=== PATIENT | female | born 1950 | race Caucasian/White ===

== ENCOUNTER → 2017-11-26 08:51 | Outpatient (CLI) | payer MEDICARE, OTHER, SELFPAY ==
--- NOTE | 2017-11-26 | DI.MG.S_ITS ---
BILATERAL DIGITAL SCREENING MAMMOGRAM 3D/2D WITH CAD: 11/26/2017 CLINICAL: Routine screening. Comparison is made to exams dated: 11/10/2016 mammogram, 11/01/2015 mammogram, and 10/30/2014 mammogram - [facility]. There are scattered fibroglandular elements in both breasts. Current study was also evaluated with a Computer Aided Detection (CAD) system. There are benign masses in the right breast. No significant masses, calcifications, or other findings are seen in either breast. There has been no significant interval change. IMPRESSION: BENIGN There is no mammographic evidence of malignancy. A 1 year screening mammogram is recommended. This exam was interpreted at Station ID: [id number]. NOTE: For mammograms, a report in lay terms will be sent to the patient. Approximately 15% of breast malignancies will not be visualized mammographically. In the management of a palpable breast mass, a negative mammogram must not discourage biopsy of a clinically suspicious lesion. Electronically Signed By: Johnson farr/farnaz:11/27/2017 09:15:17 letter sent: Normal Exam ACR BI-RADS Category 2: Benign Finding(s) 3342F
== END ==
PROVIDERS: Family Provider Family Medicine; PCP Family Medicine; Visit Provider Family Medicine
DX: Z12.31 Encounter for screening mammogram for malignant neoplasm of breast (principal)
CPT/HCPCS: 77063; 77067

== ENCOUNTER → 2017-12-25 15:30 | Outpatient (CLI) | payer MEDICARE, OTHER, SELFPAY | PROVIDERS: Family Provider Family Medicine; PCP Family Medicine; Visit Provider Podiatrist | DX: Z01.818 Encounter for other preprocedural examination (principal) | CPT/HCPCS: 93005; 93010 ==

== ENCOUNTER 2018-07-12 10:02 | Emergency (ER) | payer MEDICARE, OTHER, SELFPAY ==
[2018-07-12 11:22] VITALS: BP 150/90; PULSE 73; RESP 13; TEMP 36.6; O2SAT 98
[2018-07-12 13:00] VITALS: BP 150/84; PULSE 70; RESP 17; O2SAT 100
[2018-07-12] MEDS: CYCLOBENZAPRINE 10 MG TABLET PO (13:08)
[2018-07-12] MEDS: HYDROCODONE/ACET 5/325 TABLET 1 TAB PO (13:11)
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
[2018-07-12 14:47] VITALS: BP 135/82; PULSE 65; RESP 14; O2SAT 96
== END 2018-07-12 14:47 | disposition home or self-care (01) ==
PROVIDERS: Emergency Provider Internal Medicine; Family Provider Family Medicine; PCP Family Medicine
DX: S39.012A Strain of muscle, fascia and tendon of lower back, initial encounter (principal)
CPT/HCPCS: 99282; 99283

== ENCOUNTER → 2018-09-18 07:38 | Outpatient (CLI) | payer MEDICARE, OTHER, SELFPAY ==
[2018-09-18 08:57] LABS: Add Manual Diff / Slide Review NO; Basophils Absolute Auto 0 /uL (0-100); Basophils Percent Auto 0.8 % (0-2); Eosinophils Absolute Auto 100 /uL (0-450); Eosinophils Percent Auto 2.1 % (2-4); Hematocrit 42.3 % (36-46); Lymphocytes Absolute Auto 1500 /uL (1100-4500); Lymphocytes Percent Auto 28.6 % (25-40); Mean Corpuscular HGB Conc 33.1 % (30-36); Mean Corpuscular Hemoglobin 29.3 PG (26-34); Mean Corpuscular Volume 88.5 fL (80-100); Monocytes Absolute Auto 500 /uL (0-900); Monocytes Percent Auto 9.1 % (3-14); Neutrophils Absolute Auto 3100 /uL (1500-7000); Neutrophils Percent Auto 59.4 % (50-75); Platelet Count 259 X10^3/uL (150-400); Red Blood Cell Count 4.78 X10^6/uL (4.0-5.2); Red Cell Distribution Width 13.3 % (11.6-14.8); White Blood Cell Count 5.1 X10^3/uL (4.5-11.0)
[2018-09-18 10:00] LABS: Alanine Aminotransferase 27 IU/L (9-52); Albumin 4.6 g/dL (3.5-5.0); Albumin Globulin Ratio 1.6 (1.0-2.8); Alkaline Phosphatase 54 U/L (38-126); Aspartate Aminotransferase 24 IU/L (14-36); Bilirubin Total 0.4 mg/dL (0.2-1.3); Blood Urea Nitrogen 14 mg/dL (7-17); Calcium 9.7 mg/dL (8.4-10.2); Carbon Dioxide 27 mmol/L (22-32); Chloride 97 mmol/L (98-107); Cholesterol 192 mg/dL (140-199); Estimated Glomerular Filt Rate > 60.0 mL/min (>60); Globulin 2.8 g/dL (1.7-4.1); Glucose 85 mg/dL (80-110); HDL Cholesterol 66 mg/dL (40-60); HEMOLYSIS < 15 (0-50); LDL Cholesterol Calculated 111 mg/dL (<100); Potassium 4.9 mmol/L (3.4-5.1); Sodium 137 mmol/L (137-145); Total Protein 7.4 g/dL (6.3-8.2); Triglycerides 73 mg/dL (35-150)
[2018-09-18 10:06] LABS: Microalbumi Creatinin Ratio Ur 17.6 ug/mg CR (<30); Microalbumin Urine Random < 0.6 mg/dL (0-1.6)
[2018-09-18 10:30] LABS: Thyroid Stimulating Hormone 1.85 uIU/mL (0.47-4.68)
== END ==
PROVIDERS: Family Provider Family Medicine; PCP Family Medicine; Visit Provider Family Medicine
DX: I10 Essential (primary) hypertension (principal); E78.2 Mixed hyperlipidemia; Z13.1 Encounter for screening for diabetes mellitus; R89.9 Unspecified abnormal finding in specimens from other organs, systems and tissues; Z13.0 Encounter for screening for diseases of the blood and blood-forming organs and certain disorders involving the immune mechanism
CPT/HCPCS: 36415; 80053; 80061; 82043; 82570; 84443; 85025

== ENCOUNTER → 2018-09-29 14:28 | Outpatient (CLI) | payer MEDICARE, OTHER, SELFPAY ==
--- NOTE | 2018-09-29 14:30 | DI.MG.S_ITS ---
BILATERAL DIGITAL DIAGNOSTIC MAMMOGRAM 3D/2D: 09/29/2018 CLINICAL: Fibrocystic changes of the right breast. Comparison is made to exams dated: 11/26/2017 mammogram, 11/10/2016 mammogram, and 11/01/2015 mammogram - [facility]. There are scattered fibroglandular elements in both breasts. There is a triangular marker overlying the skin of the upper outer right breast at middle depth at the site of the patient's reported palpable abnormality. There is an oval circumscribed mass measuring at least 2.0 cm in greatest diameter, which appears stable on multiple prior mammograms dating back to at least 2012. There is a triangular marker overlying the skin of the upper inner right breast at middle depth at the site of the patient's reported palpable abnormality. There is an oval circumscribed mass measuring at least 2.0 cm in greatest diameter, which appears stable on multiple prior mammograms dating back to at least 2012. There is a linear scar marker overlying the right breast. There is a circular mole marker overlying the left breast. No other significant masses, calcifications, or other findings are seen in either breast. IMPRESSION: INCOMPLETE: NEEDS ADDITIONAL IMAGING EVALUATION 1) Stable at least 2.0 cm oval circumscribed mass identified in the upper outer right breast at middle depth, underlying the site of patient's reported palpable concern. Targeted diagnostic ultrasound recommended for further evaluation, which will be performed immediately following this exam. 2) Stable at least 2.0 cm oval circumscribed mass identified in the upper inner right breast at middle depth, underlying the site of patient's reported palpable concern. Targeted diagnostic ultrasound recommended for further evaluation, which will be performed immediately following this exam. This exam was interpreted at Station ID: [id number]. NOTE: For mammograms, a report in lay terms will be sent to the patient. Approximately 15% of breast malignancies will not be visualized mammographically. In the management of a palpable breast mass, a negative mammogram must not discourage biopsy of a clinically suspicious lesion. Electronically Signed By: Regino Melendez M.D. ecl/:09/29/2018 15:10:34 letter sent: Additional Imaging Needed ACR BI-RADS Category 0: Incomplete 3340F
--- NOTE | 2018-09-29 14:30 | DI.US.S_ITS ---
LIMITED ULTRASOUND OF RIGHT BREAST: 09/29/2018 CLINICAL: Patient returns today to evaluate a density in the right breast. Comparison is made to exams dated: 09/29/2018 mammogram, 11/26/2017 mammogram, 11/10/2016 mammogram, 10/28/2013 mammogram, 08/03/2012, and 08/03/2012 mammogram - [facility]. Color flow and real-time ultrasound of the right breast upper aspect were performed. Mahoney scale images of the real-time examination were reviewed. There is a 2.0 x 1.1 x 2.1 cm oval circumscribed hypoechoic mass in the right breast at 10:00 position 7 cm from the nipple at the site of patient's reported focal palpable painful abnormality. There is peripheral vascularity adjacent to the mass but no internal vascularity on Doppler ultrasound. This mass previously measured 2.2 x 1.0 x 1.8 cm on comparison ultrasound of 08/03/2012. This correlates with the findings seen on comparison diagnostic mammography performed earlier today. No other masses or abnormalities are identified in the area of patient's indicated concern. There is a 2.3 x 1.1 x 1.7 cm oval circumscribed hypoechoic mass in the right breast at 2:00 position 7 cm from the nipple at the site of patient's reported focal palpable painful abnormality. There is trace internal vascularity on Doppler ultrasound. This mass previously measured 2.4 x 0.8 x 1.6 cm on comparison ultrasound of 08/03/2012. This correlates with the findings seen on comparison diagnostic mammography performed earlier today. No other masses or abnormalities are identified in the area of patient's indicated concern. IMPRESSION: BENIGN 1) Patient's focal painful palpable abnormality of the upper outer right breast at 10:00 position 7 cm from the nipple correlates with a 2.2 cm oval circumscribed mass that is stable in appearance on exams dating back to 08/03/2012, consistent with a fibroadenoma. Recommend clinical followup for further evaluation and management of the patient's symptoms. 2) Patient's focal painful palpable abnormality of the upper inner right breast at 2:00 position 7 cm from the nipple correlates with a 2.3 cm oval circumscribed mass that is stable in appearance on exams dating back to 08/03/2012, consistent with a fibroadenoma. Recommend clinical followup for further evaluation and management of the patient's symptoms. 3) There is no sonographic evidence of malignancy in the imaged areas of the right breast. Return to annual mammogram screening schedule is recommended. The patient is advised to monitor her breasts and to return sooner for re-evaluation should she feel anything grow or change. This exam was interpreted at Station ID: [id number]. Electronically Signed By: Regino Melendez M.D. ecl/:09/30/2018 10:48:04 letter sent: Clinical Evaluation Ultrasound BI-RADS: 2 Benign
== END ==
PROVIDERS: PCP Family Medicine; Visit Provider Family Medicine
DX: R92.8 Other abnormal and inconclusive findings on diagnostic imaging of breast (principal); N60.11 Diffuse cystic mastopathy of right breast; N63.11 Unspecified lump in the right breast, upper outer quadrant; N63.12 Unspecified lump in the right breast, upper inner quadrant; N64.4 Mastodynia
CPT/HCPCS: 76642; 77066; G0279

== ENCOUNTER 2018-11-18 07:23 | Day surgery (SDC) | payer MEDICARE, OTHER, SELFPAY ==
[2018-11-02 10:43] VITALS: BMI 28.2
[2018-11-18] VITALS (10 sets, daily range): BP systolic 74–151; BP diastolic 45–92; PULSE 56–81; RESP 8–16; TEMP 36.3–37.1; O2SAT 95–100; BMI 27.8
--- NOTE | 2018-11-18 | PATH_ITS ---
[facility] Accession Number: [id number] . 01 Material submitted: . PART A: breast - MEDIAL LESION RIGHT BREAST PART B: breast - LATERAL MASS RIGHT BREAST . 01 Clinical history: . A. SHORT STITCH MEDIAL, LONG STITCH ANTERIOR B. SHORT STITCH MEDIAL, LONG STITCH ANTERIOR . 01 Diagnosis: A. 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 - Nuclear grade: Intermediate. - Necrosis: Not identified. - Extent of DCIS: Present on more than one slide (10 slides with DCIS) corresponding to tissue slices #6-10, spanning approximately 2.3 cm. - Calcifications: Absent. - Resection margins: Negative, but close (see comment for details). - Estrogen receptor status: Positive (more than 95% of tumor cells staining; staining intensity: Strong). - Nipple, skin, skeletal muscle, and regional lymph nodes are not present for evaluation. - Negative for invasive malignancy. - Pathologic stage: pTis. . B. 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 - Nuclear grade: Intermediate. - Necrosis: Not identified. - Extent of DCIS: Present on more than one slide (10 slides with DCIS) corresponding to tissue slices #5-8, spanning approximately 2.0 cm. - Calcifications: Focally present, in association with DCIS. - Resection margins: Negative, but close (see comment for details). - Estrogen receptor status: Positive (more than 95% of tumor cells staining; staining intensity: Strong). - Nipple, skin, skeletal muscle, and regional lymph nodes are not present for evaluation. - Negative for invasive malignancy. - Pathologic stage: pTis. [facility] . 01 Comment: Details of DCIS proximity to margins: A- Medial lesion of right breast: DCIS is less than 0.1 cm from the posterior margin (linear span of 0.1 cm), 0.1 cm from the inferior margin (multifocally, linear span of 1.0 cm), 0.1 cm from the superior margin (linear span of 0.2 cm), 0.2 cm from the medial margin, 0.8 cm from the lateral margin, and more than 1 cm from the anterior margin. B- Lateral mass of right breast: DCIS is less than 0.1 cm from the inferior margin (linear span of 1.0 cm), 0.15 cm from the medial margin, 0.3 cm from the lateral and superior margins, 0.5 cm from the posterior margin, and more than 1 cm from the anterior margin. . 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 A spectrum of morphologic variation exists, and range from flat epithelial, to atypical ductal hyperplasia, to DCIS. . 01 Electronically signed: . Nichole Jeffery MD, Pathologist NPI- [id number] . 01 Gross description: . (A) Received: In formalin, labeled medial lesion right breast, short stitch medial, long stitch anterior. Specimen: Right partial mastectomy. Weight: 13 grams. Measurement: 3.5 cm anterior to posterior, 3.5 cm medial to lateral, and 1.3 cm superior to inferior. Skin ellipse: Absent. Wire: One localization wire enters the superior anteromedial aspect and ends just below the surface of the inferior central lateral aspect. Margins: Oriented by surgeon with short medial suture, long anterior suture, and inked as follows: posterior=black; anterior=purple; superior= blue; inferior=green; medial=yellow; lateral=orange. Sliced: Anterior to posterior into 10 slices. Lesions: One. Description: Firm, white, lobulated, well-circumscribed mass. Size: 2.3 x 1.6 x 1.2 cm. Slices involved: #6-#10. Biopsy site: No biopsy site grossly identified. Distance to margins: 2.2 cm from the anterior margin, 0.1 cm from the posterior margin, 0.1 cm from the superior margin, 0.1 cm from the inferior margin, 0.3 cm from the medical margin, and 0.9 cm from the lateral margin. Other: The remaining cut surfaces consist of yellow lobulated adipose tissue. No additional discrete masses or lesions are grossly identified. Fixation time: The specimen was placed in formalin on 11/18/2018 with no time given. The approximate total fixation time is calculated to be 69 hours 30 minutes. Sections: A1-A2: Slice 1, anterior end of specimen, perpendicular. A3-A4: Slice 2, bisected and submitted medial to lateral. A5-A6: Slice 3, bisected and submitted medial to lateral. A7-A8: Slice 4, bisected and submitted medial to lateral. A9-A10: Slice 5, tissue anterior to mass, location of terminal end of localization wire, bisected and submitted medial to lateral. A11-A12: Slice 6 with mass, bisected and submitted medial to lateral. A13-A14: Slice 7 with mass, bisected and submitted medial to lateral. A15-A16: Slice 8 with mass, bisected and submitted medial to lateral. A17-A18: Slice 9 with mass, bisected and submitted medial to lateral. A19-A20: Slice 10 with mass, posterior end of specimen, perpendicular. Specimen is entirely submitted. (B) Received: In formalin, labeled lateral mass right breast, short stitch medial, long stitch anterior. Specimen: Right partial mastectomy. Weight: 18 grams. Measurement: 5.5 cm anterior to posterior, 3.3 cm medial to lateral, and up to 2.2 cm superior to inferior. Skin ellipse: Absent. Wire: One localization wire enters the central inferoanterior aspect and exits the anterolateral inferior aspect. Margins: Oriented by surgeon with short medial suture, long anterior suture, and inked as follows: posterior=black; anterior=purple; superior=blue; inferior=green; medial=yellow; lateral=orange. Sliced: Anterior to posterior into 12 slices. Lesions: One. Description: Firm, white, lobulated, well-circumscribed mass. Size: 2.0 x 1.9 x 1.6 cm. Slices involved: #5-#8. Biopsy site: No biopsy site is grossly identified. Distance to margins: 2.2 cm from the anterior margin, 1.7 cm from the posterior margin, 1.8 cm from the superior margin, less than 0.1 cm from the inferior margin, 0.6 cm from the medial margin, and 0.7 cm from the lateral margin. Other: The remaining cut surfaces consist of yellow and perrin-white fibrofatty tissue. No other nodules, masses or lesions are grossly identified. Fixation time: The specimen was placed in formalin on 11/18/2018 with no time given. The approximate total fixation time is calculated to be 69 hours 30 minutes. Sections: B1: Anterior end of specimen, perpendicular. B2: Slice 2. B3: Slice 3. B4: Slice 4, tissue anterior to mass. B5-B6: Slice 5 with mass, bisected and submitted medial to lateral. B7-B8: Slice 6 with mass, bisected and submitted medial to lateral. B9-B12: Slice 7 with mass. B13-B14: Slice 8 with mass, bisected and submitted superior to inferior. B15: Slice 9, tissue posterior to mass. B16: Slice 10. B17: Slice 11. B18: Slice 12, posterior aspect of specimen, perpendicular. Specimen entirely submitted. ([id number]) /MRV . 01 Microscopic: . A panel of immunostains is performed on blocks A14 and B7 in order to evaluate the intraductal epithelial proliferation within the fibroadenomas. The intraductal epithelial proliferation demonstrates loss of CK5/6 (with appropriately staining external controls) and overexpression of ER, in support of the diagnosis of an atypical intraductal proliferation. There is no evidence of invasive malignancy. . DCIS has the following immunoreactivity in both blocks A14 and B7: - Estrogen receptor status: Positive (99% tumor cells staining; staining intensity: strong; Internal controls: positive) . Internal controls for ER are positive. Cold ischemic time is <5 minutes. The scoring criteria for breast biomarkers by immunohistochemstry is based on the current ASCO/CAP guidelines (Randy AC et al J Clin Oncol 2018: 2018 Nov 10;36(20):5428-3086). Deparaffinized sections of formalin fixed tissue (along with appropriate positive controls) are incubated with the above antibody(s). Using the automated Arden stainer, tissue is incubated with the designated antibody which is then localized by a non-biotin, dual polymer detection system. The external controls are reviewed for appropriate reactivity and found to be adequate. Results on the target call population are indicated above. These tests have not been validated on decalcified tissue. * This test was developed and its performance characteristics determined by [employer]. It has not been cleared or approved by the U.S. Food and Drug Administration. The FDA has determined that such clearance or approval is not necessary. This test is used for clinical purposes. It should not be regarded as investigational or for research. . 01 Pathologist provided ICD-10: D05.11 . 01 CPT . 665899, 040643, O21236, V92480 Performed at: 01 [facility] [address] [place] [address], [place], [place] [id number] MD Philip Currie MD Phone: [phone]
--- NOTE | 2018-11-18 | DI.MG.S_ITS ---
MULTIPLE SPECIMENS RIGHT BREAST: 11/18/2018 CLINICAL: Right breast cancer. Correlation is made to exams dated: 11/18/2018 mammogram, 11/18/2018 localization, and 09/29/2018 mammogram - [facility]. A surgical specimen was imaged for the mass located in the right breast at 10 o'clock posterior depth. A surgical specimen was imaged for the mass located in the right breast at 2 o'clock posterior depth. IMPRESSION: SPECIMEN The imaged specimen includes the lesion and the distal portion of the localization wire. Waiting for pathology results. A final report will be issued when these become available. The imaged specimen includes the distal portion of the localization wire. Waiting for pathology results. A final report will be issued when these become available. This exam was interpreted at [facility]: [id number]. Jimmy alegria/:11/18/2018 17:05:05
--- NOTE | 2018-11-18 | DI.MG.S_ITS ---
UNILATERAL RIGHT DIGITAL DIAGNOSTIC MAMMOGRAM POST-NEEDLE BIOPSY: 11/18/2018 CLINICAL: Right breast cancer. Comparison is made to exams dated: 11/18/2018 localization, 09/29/2018 mammogram, and 11/26/2017 mammogram - [facility]. There are scattered fibroglandular elements in right breast. There is a wire in the appropriate position in the right breast at 10 o'clock middle depth. There also is a wire in the appropriate position in the right breast at 2 o'clock middle depth. IMPRESSION: POST PROCEDURE MAMMOGRAM FOR MARKER PLACEMENT Successful wire localization of masses at the 10 o'clock and 2 o'clock position in the right breast This exam was interpreted at [facility]: [id number]. NOTE: For mammograms, a report in lay terms will be sent to the patient. Approximately 15% of breast malignancies will not be visualized mammographically. In the management of a palpable breast mass, a negative mammogram must not discourage biopsy of a clinically suspicious lesion. Electronically Signed By: Jimmy alegria/:11/18/2018 17:03:34 ACR BI-RADS Category Post-procedure mammogram for marker placement
--- NOTE | 2018-11-18 07:27 | DI.US.S_ITS ---
MULTIPLE ULTRASOUND GUIDED WIRE LOCALIZATION RIGHT BREAST: 11/18/2018 CLINICAL: Pre-op wire localization x 2 with ultrasound guidance. Correlation is made to exams dated: 09/29/2018 mammogram, 09/29/2018 ultrasound, 11/26/2017 mammogram, 11/10/2016 mammogram, and 11/01/2015 mammogram - [facility]. A wire localization using ultrasound guidance was performed for the mass located in the right breast at 10 o'clock posterior depth. The skin was prepped in the usual manner. Local anesthetic was administered to the access site. A wire was inserted into the targeted area under ultrasound guidance. A wire localization using ultrasound guidance was performed for the mass located in the right breast at 2 o'clock posterior depth. The skin was prepped in the usual manner. Local anesthetic was administered to the access site. A wire was inserted into the targeted area under ultrasound guidance. IMPRESSION: WIRE LOCALIZATION Wire localization for the mass in the right breast at 10 o'clock posterior depth was successful. Waiting for pathology results. A final report will be issued when these become available. Wire localization for the mass in the right breast at 2 o'clock posterior depth was successful. Waiting for pathology results. A final report will be issued when these become available. This exam was interpreted at [facility]: [id number]. Jimmy alegria/:11/18/2018 16:59:42
[2018-11-18] MEDS: LACTATED RINGERS 1,000 ML 100 ML IV (09:18)
--- NOTE | 2018-11-18 11:06 | PM.PREOP ---
Pre-operative Note Interval Note History & Physical reviewed/Exam performed by Physician: Yes Changes to H&P: Yes H&P completed within 30 days and has changed as indicated here:: Patient had 2 needles placed. Because of the hardness of the tissue as per the radiologist the needles are not through the lesion but up to it
[2018-11-18] MEDS: CEFAZOLIN 2 GM/100 ML FROZ.PIGGY IV (11:20)
--- NOTE | 2018-11-18 11:42 | SUR.OPER ---
Supine on padded OR bed, head on pillow, arms secured on padded arm boards at <90 degrees abduction, legs uncrossed, safety belt at thigh, tape over blanket over lower legs.
[2018-11-18] MEDS: BUPIVACAINE 0.5% (PF) VIAL 30 ML INJ (11:59)
--- NOTE | 2018-11-18 13:12 | PM.OP.1 ---
Operative Date/Time/Diagnoses Date of procedure: 11/18/18 Time of procedure: 12:37 Pre-op diagnosis: Two masses right breast Post-op diagnosis: same Procedure & Clinicians Procedure: Localization and lumpectomy of 2 masses in the right breast Same procedure as scheduled: Yes Indications: Patient with 2 masses known to be present for years who is developed pain in the area. She would like to have them removed. They are not palpable. Patient was brought in for needle localization lumpectomy. Surgeon: Manas Lopez Click Yes if Unassisted: Yes Anesthesia Type: General Operative Notes Findings: Both lesions were in the specimen Closure Type: primary Specimen(s): other (Breast masses) Prosthetic devices, grafts, tissues, transplants, or devices: None Estimated Blood Loss (mL): 50 Blood products transfused: none Procedure in detail: Patient is placed supine on the operating room table underwent general LMA anesthesia. She had had wire localization performed prior to coming to the operating room. Her breast(right) was prepped and draped in the usual fashion. Using different instruments for each lesion a curvilinear incision was made in Melissa's lines overlying each mass. The incision Was carried into the deep subcu. Using the needle as a guide and then palpation lesions were excised. Closure was with 3 0 Vicryl to reapproximate the deep tissues and the subcu and 4 0 Vicryl subcuticular stitch and Steri-Strips to close the skin. Dressings were applied. Patient tolerated the procedure well. Specimen mammography revealed both lesions were removed. Complications: none Condition: stable Disposition: PACU Plan for aftercare: Follow-up in the office
[2018-11-18] MEDS: fentaNYL 100 MCG/2 ML INJ 50 MCG IV (13:20)
[2018-11-18] MEDS: OXYCODONE/ACETAMINOPHEN 5/325 TABLET 1 TAB PO (13:30)
--- NOTE | 2018-11-18 15:10 | SUR.PHASEII ---
Late entry: 1400 pt voiced she would like to go home, dressing to r breast x 2 remained c/d/i. Assisted pt to dress and pt left unit in stable condition.
== END 2018-11-18 14:00 | disposition home or self-care (01) ==
PROVIDERS: PCP Family Medicine; Visit Provider Specialist
PROC: (CPT 19125; principal; 2018-11-18 10:45)
DX: D05.11 Intraductal carcinoma in situ of right breast (principal); Z17.0 Estrogen receptor positive status [ER+]; I10 Essential (primary) hypertension; E78.5 Hyperlipidemia, unspecified
CPT/HCPCS: 19125; 19126; 19285; 76098; 77065; 88307; 88341; 88342; J0690; J1100; J2405; J2704; J3010

== ENCOUNTER 2018-12-13 09:35 | Day surgery (SDC) | payer MEDICARE, OTHER, SELFPAY ==
[2018-11-30 12:12] VITALS: BMI 25.8
[2018-12-13] VITALS (14 sets, daily range): BP systolic 112–136; BP diastolic 70–87; PULSE 61–77; RESP 8–16; TEMP 36.5–36.8; O2SAT 94–100; BMI 27.8
--- NOTE | 2018-12-13 | PATH_ITS ---
[facility] Accession Number: [id number] . 01 Material submitted: . PART A: breast - RIGHT BREAST MASS PART B: breast - LATERAL RIGHT BREAST MASS . 01 Diagnosis: A. 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 - Nuclear grade: Intermediate. - Necrosis: Not identified. - Extent of DCIS: Present on one slide (less than 0.1 cm). - Calcifications: Absent. - Resection margins: Negative; DCIS is more than 0.9 cm from all the margins. - Nipple, skeletal muscle, and regional lymph nodes are not present for evaluation. - Negative for invasive malignancy. - Additional findings: - Focal flat epithelial atypia, focal atypical ductal hyperplasia. - Skin with dermal scar, associated suture granuloma, and changes consistent with prior excision site. - Background breast with changes consistent with prior excision site, associated fat necrosis with coarse calcifications, suture granuloma/foreign body giant cell reaction, focal usual ductal hyperplasia, fibroadenomatoid change, and columnar cell change/ columnar cell hyperplasia. - Negative for invasive malignancy. . B. Lateral Right Breast Mass, Excision: Residual small focus of ductal carcinoma in situ (DCIS), with the following features: - Architectural pattern: Solid and cribriform. - Nuclear grade: Intermediate. - Necrosis: Not identified. - Extent of DCIS: Present on one slide (less than 0.2 cm), in association with residual fibroadenoma. - Calcifications: Absent. - Resection margins: Negative; DCIS is more than 0.8 cm from the all the margins. - Nipple, skeletal muscle, and regional lymph nodes are not present for evaluation. - Negative for invasive malignancy. - Additional findings: - Skin with dermal scar, associated suture granuloma, and changes consistent with prior excision site. - Background breast with changes consistent with prior excision site, suture granuloma/foreign body giant cell reaction, focal columnar cell change/columnar cell hyperplasia, sclerosed papilloma with usual ductal hyperplasia, and microcalcifications associated with fibrosis/scar/benign breast parenchyma. - Negative for invasive malignancy. 12/17/2018 . 01 Electronically signed: . Nichole Jeffery MD, Pathologist NPI- [id number] . 01 Gross description: . (A) Received: In formalin, labeled right breast mass; long stitch medial, short stitch inferior. Weight: 63 grams. Measurement: 3.3 cm anterior to posterior, 9.1 cm medial to lateral and 5.3 cm superior to inferior. Skin ellipse: Present, measuring 4.0 x 1.0 cm. Wire: Absent. Oriented by surgeon with long medial suture, short inferior suture, and inked as follows: posterior=black; anterior-purple; superior=blue; inferior=green; medial=yellow; lateral=orange. Sliced: Lateral to medial into 16 slices. Lesions: One. Description: Mahoney-white ill-defined mass with a string marker within slice 7. Size: 3.8 x 3.7 x 2.0 cm. Slices involved: Slices 4-15. Biopsy site: Present. Distance to margins: 0.3 cm from skin surface, 0.3 cm from anterior margin, less than 0.1 cm from posterior margin, 1.3 cm from superior margin, 0.2 cm from the inferior margin, 1.4 cm from the lateral margin, and 0.4 cm from the medial margin. The remaining cut surfaces consist of yellow lobulated adipose tissue. Fixation time: The specimen was placed in formalin on 12/13/2018 with no time given. The approximate total fixation time in formalin is calculated to be 54 hours 30 minutes. Sections: A1: Slice 1, dental sales representative lateral end of specimen, perpendicular. A2-A3: Slice 3, slice lateral to mass, dental sales representative, no mass present. A4: Slice 4, mass with margin, dental sales representative. A5: Slice 5, mass with margin, dental sales representative. A6-A7: Slice 6, trisected, dental sales representative middle third with mass, submitted anterior to posterior. A8: Slice 7, dental sales representative with mass and margin. A9-A11: Slice 8, trisected, entirely submitted. A12-A13: Slice 9, bisected and entirely submitted. A14-A15: Slice 10, bisected and entirely submitted. A16-A17: Slice 11, bisected and entirely submitted. A18-A19: Slice 12, bisected and entirely submitted. A20-A21: Slice 13, bisected and entirely submitted. A22: Slice 14, entirely submitted. A23: Slice 15, bisected superior to inferior, superior half with mass submitted. A24-A25: Medial end of specimen, perpendicular, entirely submitted. Note: After slicing, this specimen was reviewed by Dr. Cristiano Quach. (B) Received: In formalin, labeled right lateral breast mass, long stitch medial, long stitch superior. Per the requisition, long stitch is medial and short stitch is superior, which correlates exactly with how the specimen is oriented. Specimen: Right partial mastectomy. Weight: 53 grams. Measurement: 5.1 cm anterior to posterior, 4.7 cm medial to lateral, 5.8 cm superior to inferior. Skin ellipse: Present, measuring 2.2 x 0.5 cm. Wire: Absent. Margins: Oriented by surgeon with long medial suture, short superior suture, and inked as follows: posterior=black; anterior=purple; superior=blue; inferior=green; medial=yellow; lateral=orange. Sliced: Superior to inferior into 14 slices. Lesions: One. Description: Mahoney-white firm ill-defined mass. Size: 4.5 x 4.1 x 3.2 cm. Slices involved: Slices 1-11. Biopsy site: Present. Distance to margins: 0.5 cm from the skin surface, 0.4 cm from the anterior margin, 0.1 cm from the posterior margin, 0.1 cm from the superior margin, 1.3 cm from the inferior margin, 0.2 cm from the medial margin, and 0.1 cm from the lateral margin. The remaining cut surface consists of yellow lobulated and focally fibrous adipose tissue. No other masses or lesions are grossly identified. Fixation time: The specimen was placed in formalin on 12/13/2018 with no time given. The approximate total fixation time in formalin is calculated to be 54 hours 30 minutes. Sections: B1-B2: Superior end of specimen, slice 1, perpendicular, mass is present, entirely submitted. B3-B4: Slice 2, mass, bisected and entirely submitted. B5-B6: Slice 3, dental sales representative with mass, dental sales representative. B7: Slice 4, dental sales representative with mass. B8-B11: Slice 5, entirely submitted. B12: Slice 6, dental sales representative with mass. B13-B14: Slice 7, dental sales representative with mass. B15: Slice 8, mass with margins, dental sales representative. B16: Slice 9, mass with margins, dental sales representative. B17: Slice 10, mass with margins, dental sales representative. B18: Slice 11, mass with margins. B19-B20: Slice 12, slice inferior to mass, no mass present, bisected and entirely submitted. B21: Slice 14, dental sales representative inferior end of specimen, perpendicular. Note: After slicing, the specimen was reviewed by Dr. Cristiano Quach. ([id number]) /MRV . 01 Microscopic: . The lesions identified in the re-excision specimens (parts A and B) are interpreted in conjunction with the prior excision specimens (case# [id number]). . Part A. In block A14, a minute focus of atypical intraductal proliferation (< 0.1 cm) consists of cells that are not equidistant from each other and overlap, are not round but rather enlarged/elongate with variable nuclear size and increase in nuclear-cytoplasmic ratio, and form bridges and arcades of variable thickness. Given the differential diagnosis that includes usual ductal hypeprlasia, this focus is evaluated with CK 5/6 and ER; it has overexpression of ER and loss of CK5/6, which along with the morphology, is best interpreted as a minute focus of residual DCIS of intermediate grade morphology. In Block A19, 3 small ducts have a slightly atypical intraductal proliferation, with a differential diagnosis that includes DCIS versus flat epithelial atypia and atypical ductal hyperplasia. One duct with flat epithelial changes has overexpression of ER and loss of CK5/6 and is best interpreted as flat epithelial atypia; the rest of the ducts do not demonstrate a definite neoplastic immunoprofile, and are best interpreted as minute foci of atypical ductal hyperplasia and columnar cell change/hyperplasia. . Part B. In block B18, an atypical intraductal proliferation within a residual focus of fibroadenoma demonstrates loss of CK 5/6 and overexpression of ER; given the nuclear size variability and overlap, and the morphologic similarity to the intermediate grade DCIS on the prior excisions, these changes are best interpreted as a small residucal focus of intermediate grade DCIS. . Deeper levels are examined on A12, A14, A19, B12, B15, and B18. All immunostains have appropriately staining external controls. . * This test was developed and its performance characteristics determined by [facility]. It has not been cleared or approved by the U.S. Food and Drug Administration. The FDA has determined that such clearance or approval is not necessary. This test is used for clinical purposes. It should not be regarded as investigational or for research. . 01 Pathologist provided ICD-10: D05.11 . 01 CPT . 827158, 624423, L75462, [id number] Performed at: 01 [facility] [address] [place] [address] [address], [place], [place] [id number] MD Philip Currie MD Phone: [phone]
[2018-12-13] MEDS: LACTATED RINGERS 1,000 ML 42 ML IV ×2 (10:24→13:08)
--- NOTE | 2018-12-13 11:50 | PM.PREOP ---
Pre-operative Note Interval Note History & Physical reviewed/Exam performed by Physician: Yes Changes to H&P: No H&P completed within 30 days and has changed as indicated here:: See H and P as an outpatient visit 12/01
[2018-12-13] MEDS: CLINDAMYCIN 900 MG/50 ML PIGGYBACK 50 MG IV (12:06)
--- NOTE | 2018-12-13 12:46 | SUR.OPER ---
Supine on padded OR bed, head on pillow, arms secured on padded arm boards at <90 degrees abduction, legs uncrossed, safety belt at thigh, tape over blanket over lower legs.
[2018-12-13] MEDS: BUPIVACAINE 0.5% (PF) VIAL 30 ML INJ (12:51)
[2018-12-13] MEDS: fentaNYL 100 MCG/2 ML INJ 50 MCG IV ×2 (14:37→15:03)
--- NOTE | 2018-12-13 14:44 | PM.OP.1 ---
Operative Date/Time/Diagnoses Date of procedure: 12/13/18 Time of procedure: 14:44 Pre-op diagnosis: DCIS 2 areas of the right breast. Patient interested in breast conservation and not mastectomy. Post-op diagnosis: same Procedure & Clinicians Procedure: Re-excision of biopsy sites.(lumpectomy 2 separate areas.) Same procedure as scheduled: Yes Indications: Unexpected DCIS in 2 known, longstanding fibroadenomas of the right breast. Surgeon: Manas Lopez Click Yes if Unassisted: Yes Anesthesia Type: General Operative Notes Findings: Re-excise to both areas of her prior biopsy sites. I entered the cavity of the lateral biopsy site and then excise the entire wall and sutured the cavity closed so that ink marking would reflect the actual exterior wall of my biopsy specimen. Closure Type: primary Specimen(s): other (To masses) Prosthetic devices, grafts, tissues, transplants, or devices: None Estimated Blood Loss (mL): 30 Blood products transfused: none Complications: none Condition: stable Disposition: PACU
[2018-12-13] MEDS: OXYCODONE/ACETAMINOPHEN 5/325 TABLET 1 TAB PO (15:02)
[2018-12-13] MEDS: HYDROMORPHONE 2 MG INJ 0.5 MG IV ×2 (15:33→15:45)
== END 2018-12-13 17:05 | disposition home or self-care (01) ==
PROVIDERS: PCP Family Medicine; Visit Provider Specialist
PROC: (CPT 19301; principal; 2018-12-13 11:30)
DX: D05.11 Intraductal carcinoma in situ of right breast (principal); I10 Essential (primary) hypertension; E78.2 Mixed hyperlipidemia
CPT/HCPCS: 19301; 88307; 88341; 88342; J1100; J1170; J2405; J2704; J3010

== ENCOUNTER → 2019-06-16 08:57 | Outpatient (CLI) | payer MEDICARE, OTHER, SELFPAY ==
--- NOTE | 2019-06-16 09:02 | DI.MG.S_ITS ---
BILATERAL DIGITAL SCREENING MAMMOGRAM 3D/2D WITH CAD POST LUMPECTOMY: 06/16/2019 CLINICAL: Routine screening. Personal history of right breast cancer. Family history of breast cancer. Comparison is made to exams dated: 11/18/2018 mammogram, 09/29/2018 mammogram, 11/26/2017 mammogram, 11/10/2016 mammogram, 11/01/2015 mammogram, and 09/15/2011 mammogram - [facility]. There are scattered fibroglandular elements in both breasts. Current study was also evaluated with a Computer Aided Detection (CAD) system. There are benign post operative findings in the right breast. No significant masses, calcifications, or other findings are seen in either breast. There has been no significant interval change. IMPRESSION: There is no mammographic evidence of malignancy. A 1 year screening mammogram is recommended. This exam was interpreted at Station ID: [id number]. NOTE: For mammograms, a report in lay terms will be sent to the patient. Approximately 15% of breast malignancies will not be visualized mammographically. In the management of a palpable breast mass, a negative mammogram must not discourage biopsy of a clinically suspicious lesion. Electronically Signed By: James kuo/farnaz:06/16/2019 10:01:35 copy to: ALANNA MACIAS copy to: KENYA LOVE letter sent: Normal Exam ACR BI-RADS Category 2: Benign Finding(s) 3342F
== END ==
PROVIDERS: PCP Family Medicine
DX: Z12.31 Encounter for screening mammogram for malignant neoplasm of breast (principal); D05.10 Intraductal carcinoma in situ of unspecified breast; Z80.3 Family history of malignant neoplasm of breast; M85.88 Other specified disorders of bone density and structure, other site; Z78.0 Asymptomatic menopausal state
CPT/HCPCS: 77063; 77067; 77080

== ENCOUNTER → 2019-11-25 07:24 | Outpatient (CLI) | payer MEDICARE, OTHER, SELFPAY ==
[2019-11-25 08:41] LABS: Blood Urea Nitrogen 17 mg/dL (7-17); Calcium 9.9 mg/dL (8.4-10.2); Carbon Dioxide 31 mmol/L (22-32); Chloride 102 mmol/L (98-107); Estimated Glomerular Filt Rate > 60.0 mL/min (>60); Glucose 95 mg/dL (80-110); HEMOLYSIS < 15 (0-50); Potassium 4.6 mmol/L (3.4-5.1); Sodium 139 mmol/L (137-145)
== END ==
PROVIDERS: PCP Family Medicine; Referring Provider Family Medicine; Visit Provider Family Medicine
DX: I10 Essential (primary) hypertension (principal)
CPT/HCPCS: 36415; 80048

== ENCOUNTER → 2019-12-29 07:27 | Outpatient (CLI) | payer MEDICARE, OTHER, SELFPAY ==
[2019-12-29 08:34] LABS: BUN Creatinine Ratio 25.4 (6-22); Blood Urea Nitrogen 18 mg/dL (7-17); Calcium 9.6 mg/dL (8.4-10.2); Carbon Dioxide 32 mmol/L (22-32); Chloride 102 mmol/L (98-107); Estimated Glomerular Filt Rate > 60.0 mL/min (>60); Glucose 99 mg/dL (80-110); HEMOLYSIS < 15 (0-50); Potassium 4.9 mmol/L (3.4-5.1); Sodium 139 mmol/L (137-145)
== END ==
PROVIDERS: PCP Family Medicine; Referring Provider Family Medicine; Visit Provider Family Medicine
DX: I10 Essential (primary) hypertension (principal)
CPT/HCPCS: 36415; 80048

== ENCOUNTER → 2020-04-04 07:27 | Outpatient (CLI) | payer MEDICARE, OTHER, SELFPAY ==
[2020-04-04 07:58] LABS: BUN Creatinine Ratio 39.6 (6-22); Blood Urea Nitrogen 36 mg/dL (7-17); Calcium 9.7 mg/dL (8.4-10.2); Carbon Dioxide 33 mmol/L (22-32); Chloride 101 mmol/L (98-107); Estimated Glomerular Filt Rate > 60.0 mL/min (>60); Glucose 106 mg/dL (80-110); HEMOLYSIS < 15 (0-50); Magnesium 2.3 mg/dL (1.6-2.3); Potassium 4.6 mmol/L (3.4-5.1); Sodium 140 mmol/L (137-145)
== END ==
PROVIDERS: PCP Family Medicine; Referring Provider Family Medicine; Visit Provider Family Medicine
DX: E78.2 Mixed hyperlipidemia (principal); I10 Essential (primary) hypertension
CPT/HCPCS: 36415; 80048; 83735

== ENCOUNTER → 2020-06-18 10:45 | Outpatient (CLI) | payer MEDICARE, OTHER, SELFPAY ==
--- NOTE | 2020-06-18 10:48 | DI.MG.S_ITS ---
BILATERAL DIGITAL SCREENING MAMMOGRAM 3D/2D WITH CAD POST LUMPECTOMY: 06/18/2020 CLINICAL: Routine screening. Family history of breast cancer. Breast cancer. Comparison is made to exams dated: 06/16/2019 mammogram, 11/18/2018 mammogram, 11/26/2017 mammogram, and 11/10/2016 mammogram - [facility]. There are scattered fibroglandular elements in both breasts. Current study was also evaluated with a Computer Aided Detection (CAD) system. There are benign post operative findings in the right breast. No significant masses, calcifications, or other findings are seen in either breast. There has been no significant interval change. IMPRESSION: BENIGN There is no mammographic evidence of malignancy. A 1 year screening mammogram is recommended. This exam was interpreted at Station ID: [id number]. NOTE: For mammograms, a report in lay terms will be sent to the patient. Approximately 15% of breast malignancies will not be visualized mammographically. In the management of a palpable breast mass, a negative mammogram must not discourage biopsy of a clinically suspicious lesion. Electronically Signed By: Ross Weinstein M.D., jr/farnaz:06/18/2020 12:08:06 letter sent: Normal Exam ACR BI-RADS Category 2: Benign Finding(s) 3342F
== END ==
PROVIDERS: PCP Family Medicine; Referring Provider Internal Medicine; Visit Provider Internal Medicine
DX: Z12.31 Encounter for screening mammogram for malignant neoplasm of breast (principal); D05.11 Intraductal carcinoma in situ of right breast; Z80.3 Family history of malignant neoplasm of breast
CPT/HCPCS: 77063; 77067

== ENCOUNTER → 2020-07-11 12:42 | Outpatient (CLI) | payer MEDICARE, OTHER, SELFPAY ==
[2020-07-11] MEDS: COVID-19 VACC, Ad26(JANSSEN)/PF 0.5 ML IM (13:02)
== END ==
PROVIDERS: PCP Family Medicine; Visit Provider Internal Medicine
DX: Z23 Encounter for immunization (principal)
CPT/HCPCS: 0031A; 91303

== ENCOUNTER → 2020-11-02 07:41 | Outpatient (CLI) | payer MEDICARE, OTHER, SELFPAY ==
[2020-11-02 08:22] LABS: Alanine Aminotransferase 25 IU/L (<35); Albumin 4.6 g/dL (3.5-5.0); Albumin Globulin Ratio 1.4 (1.0-2.8); Alkaline Phosphatase 52 U/L (38-126); Aspartate Aminotransferase 31 IU/L (14-36); Bilirubin Total 0.7 mg/dL (0.2-1.3); Blood Urea Nitrogen 12 mg/dL (7-17); Calcium 9.6 mg/dL (8.4-10.2); Carbon Dioxide 29 mmol/L (22-32); Chloride 92 mmol/L (98-107); Cholesterol 206 mg/dL (140-199); Estimated Glomerular Filt Rate > 60.0 mL/min (>60); Globulin 3.3 g/dL (1.7-4.1); Glucose 94 mg/dL (80-110); HDL Cholesterol 79 mg/dL (40-60); HEMOLYSIS < 15 (0-50); LDL Cholesterol Calculated 110 mg/dL (<100); Potassium 4.1 mmol/L (3.4-5.1); Sodium 128 mmol/L (137-145); Total Protein 7.9 g/dL (6.3-8.2); Triglycerides 85 mg/dL (35-150)
== END ==
PROVIDERS: PCP Family Medicine; Referring Provider Family Medicine; Visit Provider Family Medicine
DX: D05.11 Intraductal carcinoma in situ of right breast (principal); I10 Essential (primary) hypertension; E78.2 Mixed hyperlipidemia
CPT/HCPCS: 36415; 80053; 80061

== ENCOUNTER → 2020-12-03 11:21 | Outpatient (CLI) | payer MEDICARE, OTHER, SELFPAY ==
[2020-12-03 12:32] LABS: BUN Creatinine Ratio 26.5 (6-22); Blood Urea Nitrogen 18 mg/dL (7-17); Carbon Dioxide 28 mmol/L (22-32); Chloride 93 mmol/L (98-107); Estimated Glomerular Filt Rate > 60.0 mL/min (>60); Glucose 102 mg/dL (80-110); HEMOLYSIS < 15 (0-50); Potassium 4.9 mmol/L (3.4-5.1); Sodium 129 mmol/L (137-145)
== END ==
PROVIDERS: PCP Family Medicine; Referring Provider Family Medicine; Visit Provider Family Medicine
DX: E87.1 Hypo-osmolality and hyponatremia (principal)
CPT/HCPCS: 36415; 80048

== ENCOUNTER → 2021-06-19 10:01 | Outpatient (CLI) | payer MEDICARE, OTHER, SELFPAY ==
--- NOTE | 2021-06-19 | DI.MG.S_ITS ---
BILATERAL DIGITAL SCREENING MAMMOGRAM 3D/2D WITH CAD POST LUMPECTOMY: 06/19/2021 CLINICAL: Routine screening. Personal history of right breast cancer. Family history of breast cancer. Comparison is made to exams dated: 06/18/2020 mammogram, 06/16/2019 mammogram, and 09/29/2018 mammogram - [facility]. There are scattered fibroglandular elements in both breasts. Current study was also evaluated with a Computer Aided Detection (CAD) system. There are benign post operative findings in the right breast. No significant masses, calcifications, or other findings are seen in either breast. There has been no significant interval change. IMPRESSION: BENIGN There is no mammographic evidence of malignancy. A 1 year screening mammogram is recommended. This exam was interpreted at Station ID: [id number]. NOTE: For mammograms, a report in lay terms will be sent to the patient. Approximately 15% of breast malignancies will not be visualized mammographically. In the management of a palpable breast mass, a negative mammogram must not discourage biopsy of a clinically suspicious lesion. Electronically Signed By: Ina viera/farnaz:06/19/2021 11:07:42 letter sent: Normal Exam ACR BI-RADS Category 2: Benign Finding(s) 3342F
== END ==
PROVIDERS: PCP Family Medicine; Referring Provider Family Medicine; Visit Provider Family Medicine
DX: Z12.31 Encounter for screening mammogram for malignant neoplasm of breast (principal); Z85.3 Personal history of malignant neoplasm of breast; Z80.3 Family history of malignant neoplasm of breast
CPT/HCPCS: 77063; 77067

== ENCOUNTER → 2021-07-31 07:37 | Outpatient (CLI) | payer MEDICARE, OTHER, SELFPAY | PROVIDERS: PCP Family Medicine; Visit Provider Nurse Practitioner Family | DX: R30.0 Dysuria (principal) | CPT/HCPCS: 87086; 87210 ==

== ENCOUNTER → 2021-08-08 16:51 | Outpatient (CLI) | payer MEDICARE, OTHER, SELFPAY ==
[2021-08-10 05:13] LABS: Candida species Negative (Negative); Gardnerella vaginalis Negative (Negative); Trichomoas vaginalis Negative (Negative)
== END ==
PROVIDERS: PCP Family Medicine; Referring Provider Obstetrics & Gynecology; Visit Provider Obstetrics & Gynecology
DX: R10.2 Pelvic and perineal pain (principal)
CPT/HCPCS: 87480; 87510; 87660

== ENCOUNTER → 2022-06-19 10:30 | Outpatient (CLI) | payer MEDICARE, OTHER, SELFPAY ==
--- NOTE | 2022-06-19 | DI.MG.S_ITS ---
BILATERAL DIGITAL SCREENING MAMMOGRAM 3D/2D WITH CAD POST LUMPECTOMY: 06/19/2022 CLINICAL: Routine screening. Personal history of right breast cancer. Family history of breast cancer. Comparison is made to exams dated: 06/19/2021 mammogram, 06/16/2019 mammogram, and 06/18/2020 mammogram - [facility]. There are scattered areas of fibroglandular density in both breasts (category b / 25%-50% glandular tissue). Current study was also evaluated with a Computer Aided Detection (CAD) system. There are benign post operative findings in the right breast. No significant masses, calcifications, or other findings are seen in either breast. There has been no significant interval change. IMPRESSION: BENIGN There is no mammographic evidence of malignancy. A 1 year screening mammogram is recommended. This exam was interpreted at Station ID: [id number]. NOTE: For mammograms, a report in lay terms will be sent to the patient. Approximately 15% of breast malignancies will not be visualized mammographically. In the management of a palpable breast mass, a negative mammogram must not discourage biopsy of a clinically suspicious lesion. Electronically Signed By: Harshil foreman/farnaz:06/19/2022 13:25:38 letter sent: Normal Exam ACR BI-RADS Category 2: Benign Finding(s) 3342F
== END ==
PROVIDERS: PCP Internal Medicine; Referring Provider Internal Medicine Medical Oncology; Visit Provider Internal Medicine Medical Oncology
DX: D05.10 Intraductal carcinoma in situ of unspecified breast (principal); Z12.31 Encounter for screening mammogram for malignant neoplasm of breast; Z80.3 Family history of malignant neoplasm of breast; M85.852 Other specified disorders of bone density and structure, left thigh; Z79.811 Long term (current) use of aromatase inhibitors; Z92.23 Personal history of estrogen therapy
CPT/HCPCS: 77063; 77067; 77080

== ENCOUNTER 2022-07-20 14:54 | Emergency (ER) | payer MEDICARE, OTHER, SELFPAY ==
[2022-07-20] VITALS (7 sets, daily range): BP systolic 115–136; BP diastolic 59–85; PULSE 66–84; RESP 12–18; TEMP 36.7–36.8; O2SAT 94–100; BMI 27.4
--- NOTE | 2022-07-20 15:11 | DI.RAD.S_ITS ---
PROCEDURE: XR WRIST LT MIN 3V INDICATIONS: fall/injury TECHNIQUE: For views of the wrist were acquired. COMPARISON: None. FINDINGS: Bones: Comminuted fracture of the distal radius and ulnar styloid with mild apex volar angulation of the distal radius. No suspicious bony lesions. Soft tissues: No suspicious soft tissue calcifications. IMPRESSION: 1. Comminuted distal scaphoid fracture. 2. Avulsion fracture of the ulnar styloid. Dictated by: Jose Alfredo Weinstein M.D. on 07/20/2022 at 14:34 Approved by: Jose Alfredo Weinstein M.D. on 07/20/2022 at 14:42
--- NOTE | 2022-07-20 15:34 | ED_ITS ---
HPI - Extremity Injury (Upper) General Chief Complaint: Extremity Injury, Upper Stated Complaint: fell/hurt left wrist/tail bone pain Time Seen by Provider: 07/20/22 15:29 Source: patient Mode of arrival: Ambulatory History of Present Illness HPI narrative: Slipped and fell in the kitchen today landing on her left wrist. She suspects fracture. She says her bottom hurts a little bit but she would not be here for that. No major other health conditions. She had no loss of consciousness. She feels well otherwise. Related Data Home Medications Medication Instructions Recorded Confirmed multivitamin 1 cap PO DAILY ##0 03/09/12 09/23/21 calcium carbonate 500 mg calcium 500 mg PO DAILY 11/18/18 09/23/21 (1,250 mg) tablet (Calcium 500) fluconazole 100 mg tablet 100 mg PO PRN PRN yeast infection 12/28/18 09/23/21 (Diflucan) Previous Rx's Medication Instructions Recorded hydrochlorothiazide 25 mg tablet See Rx Instructions .Route 10/18/21 .COMPLEX #90 tabs letrozole 2.5 mg tablet (Femara) 2.5 mg PO DAILY #90 tabs 12/03/21 estradiol 0.01% (0.1 mg/gram) 0.5 g vaginal 2XW #42.5 grams 02/20/22 vaginal cream simvastatin 40 mg tablet See Rx Instructions .Route 03/06/22 .COMPLEX #90 tabs lisinopril 40 mg tablet See Rx Instructions .Route 05/26/22 .COMPLEX #180 tabs oxycodone 5 mg capsule 5 mg PO Q4H PRN pain #12 caps 07/20/22 Allergies Allergy/AdvReac Type Severity Reaction Status Date / Time Penicillins [PENICILLINS] Allergy Intermediate RASH Verified 09/23/21 14:45 estrogens, conjugated Allergy Mild RASH Verified 09/23/21 14:45 [From PREMARIN] ibuprofen [IBUPROFEN] AdvReac Severe RUPTURED Verified 09/23/21 14:45 EYE VESSELS Sulfa (Sulfonamide AdvReac Mild Nausea Verified 09/23/21 14:45 Antibiotics) [SULFA (SULFONAMIDE ANTIBIOTICS)] Patient History Medical History (Updated 07/20/22 @ 16:49 by Silviano Stewart MD) Ductal carcinoma in situ (DCIS) of right breast (~11/2018) Essential hypertension (07/28/17) Mixed hyperlipidemia (11/28/16) Surgical History (Updated 12/28/18 @ 16:41 by Norman Gordon MD) History of colonoscopy Hx of hand surgery Status post foot surgery Family History Father Cancer Brother Cancer Social History household members: spouse occupational status: previously employed Smoking Status: Never smoker alcohol intake: current substance use type: does not use additional social history: Nonsmoker, no ETOH or street drugs Smoking Status: Never smoker Substance Use Type: does not use Exam Narrative Exam Narrative: GENERAL: Alert, cooperative and in no distress. HEAD: Atraumatic. Normocephalic. EYES: Sclera are clear without icterus. Extraocular movements are full. ENT: No rhinorrhea NECK: No visible abnormality RESPIRATORY: No respiratory distress GASTROINTESTINAL: Nondistended EXTREMITIES: Distal left wrist deformity with normal radial ulnar pulses. Normal quality compliance manager. No other injury identified. NEURO: Nonfocal, normal speech SKIN: No rash or erythema of visible areas PSYCH: Normally oriented. Normal range of affect. Appropriate behavior Initial Vital Signs Initial Vital Signs: Vital Signs Temperature 98.1 F 07/20/22 15:05 Pulse Rate 84 07/20/22 15:05 Respiratory Rate 16 07/20/22 15:05 Blood Pressure 120/65 07/20/22 15:05 Pulse Oximetry 100 07/20/22 15:05 Oxygen Delivery Method Room Air 07/20/22 15:05 Procedures Orthopedic Fracture Reduction Fracture #1: Time of procedure: 16:44 Time Out Performed: Yes Side: left Fracture Reduction Location: radius and ulna Analgesia: procedural sedation Technique: direct manipulation Post Reduction X-rays Demonstrate: acceptable reduction Post-reduction neuro exam: no change Post-reduction vascular exam: intact Splint Applied: Yes Patient Tolerated Procedure: Well Procedural Sedation Time of procedure: 16:44 Consent signed: Yes Time out performed: Yes Indication: fracture/dislocation reduction ASA Class: II Time of Last PO Intake: 14:00 Preparation: cardiac technologist applied, pulse oximeter, capnometry used, supplemental O2 applied, suction/airway equipment at bedside and IV secured IV Propofol dose (mg): 100 Intraservice time/total sedation time (min): 9 ED Sedation Level: Moderate (Concious) Patient Tolerated Procedure: Well Complications: none Course Orders Ordered: ED Orders 07/20/22 15:11 XR wrist LT min 3V Stat 07/20/22 16:35 XR wrist LT 2V Stat Discontinued Medications Acetaminophen (Acetaminophen 325 Mg Tablet) 975 mg PO NOW ONE Stop: 07/20/22 15:52 Last Admin: 07/20/22 16:02 Dose: 975 mg Documented By: MAHENDRA Oxycodone HCl (Oxycodone Ir 5 Mg Tablet) 5 mg PO NOW ONE Stop: 07/20/22 15:52 Last Admin: 07/20/22 16:02 Dose: 5 mg Documented By: MAHNEDRA Propofol (Propofol 200 Mg/20 Ml Vial) 155 mg 2 mg/kg (155 mg) IV NOW ONE Stop: 07/20/22 15:50 Last Admin: 07/20/22 16:02 Dose: 155 mg Documented By: MAHENDRA Vital Signs Vital signs: Vital Signs - 8 hr 07/20/22 15:05 07/20/22 16:21 07/20/22 16:24 Temperature 98.1 F 98.2 F 98.3 F Pulse Rate 84 67 70 Respiratory Rate 16 14 16 Blood Pressure 120/65 136/73 118/59 L Pulse Oximetry 100 100 98 Oxygen Delivery Method Room Air 07/20/22 16:38 07/20/22 16:39 07/20/22 16:41 Temperature 98.3 F Pulse Rate 71 70 66 Respiratory Rate 18 12 14 Blood Pressure 115/66 125/75 129/85 Pulse Oximetry 95 94 94 Oxygen Delivery Method 07/20/22 16:40 Temperature Pulse Rate 72 Respiratory Rate 16 Blood Pressure Pulse Oximetry Oxygen Delivery Method MDM - Extremity Injury (Upper) Lab Data Labs: Point of Care Testing Test Results Negative Discharge Plan Departure Patient Disposition: Home Clinical Impression: Fracture of wrist, closed Instructions: DI for Wrist Fracture Activity Restrictions/Additional Instructions: You haveA wrist fracture.We did ourBest toPut it in a betterPosition for you.It isBetter Abdi. Please planOn seeingDr. Bess Tomorrow. CallThe clinic 1st thingIn the morningFor anAppointment time.If the splintSeemsToo tight please on rapidAnd rewrap it more loosely. For painManagement I recommend [id number] mg every 6 hours.Use oxycodone asNeeded for moreSeverePain. Prescriptions: New oxycodone 5 mg capsule 5 mg PO Q4H PRN (Reason: pain) Qty: 12 0RF No Action multivitamin Capsule 1 cap PO DAILY Qty: 0 hydrochlorothiazide 25 mg tablet See Rx Instructions .ROUTE .COMPLEX Qty: 90 3RF Dose Instruction: TAKE 1 TABLET EVERY MORNING Rx Instructions: TAKE 1 TABLET EVERY MORNING letrozole [Femara] 2.5 mg Tablet 2.5 mg PO DAILY Qty: 90 3RF estradiol 0.01 % (0.1 mg/gram) cream 0.5 g vaginal 2XW Qty: 42.5 3RF Rx Instructions: Place 0.5gm in vagina and small amount to opening twice a week simvastatin 40 mg tablet See Rx Instructions .ROUTE .COMPLEX Qty: 90 3RF Dose Instruction: TAKE 1 TABLET AT BEDTIME Rx Instructions: TAKE 1 TABLET AT BEDTIME lisinopril 40 mg tablet See Rx Instructions .ROUTE .COMPLEX Qty: 180 3RF Dose Instruction: TAKE 1 TABLET TWICE A DAY Rx Instructions: TAKE 1 TABLET TWICE A DAY calcium carbonate [Calcium 500] 500 mg calcium (1,250 mg) Tablet 500 mg PO DAILY fluconazole [Diflucan] 100 mg tablet 100 mg PO PRN PRN (Reason: yeast infection) Referrals: Heriberto Cruz MD [Primary Care Provider] - Malcolm Bess MD [Physician] - Stand Alone Forms: Patient Portal/API
[2022-07-20] MEDS: OXYCODONE IR 5 MG TABLET PO (16:02)
[2022-07-20] MEDS: propofoL 200 MG/20 ML VIAL 155 MG IV (16:02)
[2022-07-20] MEDS: ACETAMINOPHEN 325 MG TABLET 975 MG PO (16:02)
--- NOTE | 2022-07-20 16:35 | DI.RAD.S_ITS ---
PROCEDURE: XR WRIST LT 2V INDICATIONS: post reduction TECHNIQUE: 2 views of the wrist were acquired. COMPARISON: [facility], CR, XR WRIST LT MIN 3V, 07/20/2022, 15:08. FINDINGS: Bones: Casting of distal radial and ulnar styloid fractures in near anatomic alignment. Cast material limits evaluation of osseous detail. No additional fracture identified. Soft tissues: No suspicious soft tissue calcifications. IMPRESSION: Casting of radial and ulnar fractures in improved alignment. Dictated by: Jose Alfredo Weinstein M.D. on 07/20/2022 at 16:05 Approved by: Jose Alfredo Weinstein M.D. on 07/20/2022 at 16:07
--- NOTE | 2022-07-21 09:05 | PC.NURSE ---
Late entry: Medication amount edit. Total Propofol (Diprovan) amount given for procedural sedation was 100mg. The amount that was scanned and not corrected originally was 155mg.
== END 2022-07-20 17:24 | disposition home or self-care (01) ==
PROVIDERS: Emergency Provider Family Medicine Addiction Medicine; PCP Internal Medicine
DX: S52.502A Unspecified fracture of the lower end of left radius, initial encounter for closed fracture (principal); W01.0XXA Fall on same level from slipping, tripping and stumbling without subsequent striking against object, initial encounter
CPT/HCPCS: 25605; 29125; 73100; 73110; 99284; 99291; J2704

== ENCOUNTER → 2023-06-24 09:39 | Outpatient (CLI) | payer MEDICARE, OTHER, SELFPAY ==
--- NOTE | 2023-06-24 09:41 | DI.MG.S_ITS ---
BILATERAL DIGITAL SCREENING MAMMOGRAM 3D/2D WITH CAD: 06/24/2023 CLINICAL: Routine screening. Personal history of right breast cancer. Family history of breast cancer. Comparison is made to exams dated: 06/19/2022 mammogram, 06/19/2021 mammogram, and 06/18/2020 mammogram - [facility]. There are scattered areas of fibroglandular density in both breasts (category b / 25%-50% glandular tissue). Current study was also evaluated with a Computer Aided Detection (CAD) system. There are benign post operative findings in the right breast. No significant masses, calcifications, or other findings are seen in either breast. There has been no significant interval change. IMPRESSION: BENIGN There is no mammographic evidence of malignancy. A 1 year screening mammogram is recommended. This exam was interpreted at Station ID: [id number]. NOTE: For mammograms, a report in lay terms will be sent to the patient. Approximately 15% of breast malignancies will not be visualized mammographically. In the management of a palpable breast mass, a negative mammogram must not discourage biopsy of a clinically suspicious lesion. Electronically Signed By: Kelly calderon/farnaz:06/24/2023 13:53:08 letter sent: Normal Exam ACR BI-RADS Category 2: Benign Finding(s) 3342F
== END ==
LOC: MAMMO 09:40
PROVIDERS: PCP Family Medicine; Referring Provider Internal Medicine Critical Care Medicine; Visit Provider Internal Medicine Critical Care Medicine
DX: Z12.31 Encounter for screening mammogram for malignant neoplasm of breast (principal); Z85.3 Personal history of malignant neoplasm of breast; Z80.3 Family history of malignant neoplasm of breast; R92.323 Mammographic fibroglandular density, bilateral breasts
CPT/HCPCS: 77063; 77067

== ENCOUNTER → 2024-01-29 11:43 | Outpatient (CLI) | payer MEDICARE, OTHER, SELFPAY ==
--- NOTE | 2024-01-29 | DI.MG.S_ITS ---
UNILATERAL RIGHT DIGITAL DIAGNOSTIC MAMMOGRAM 3D/2D: 01/29/2024 CLINICAL: Right Breast Pain/lump. Comparison is made to exams dated: 06/24/2023 mammogram, 06/19/2022 mammogram, and 06/19/2021 mammogram - [facility]. There are scattered areas of fibroglandular density (category b / 25%-50% glandular tissue). There are stable benign post operative changes in the right breast at 3 and 10 o'clock. No significant masses, calcifications, or other findings are seen in the breast. IMPRESSION: INCOMPLETE: NEED ADDITIONAL IMAGING EVALUATION There is no abnormality seen in the right breast to correspond with the palpable abnormality and pain at 12 o'clock in the anterior depth, however, ultrasound is recommended. This exam was interpreted at Station ID: [id number]. NOTE: For mammograms, a report in lay terms will be sent to the patient. Approximately 15% of breast malignancies will not be visualized mammographically. In the management of a palpable breast mass, a negative mammogram must not discourage biopsy of a clinically suspicious lesion. Electronically Signed By: Harshil Sweeney M.D. ar/:01/29/2024 21:09:23 ACR BI-RADS Category 0: Incomplete: Need Additional Imaging Evaluation
--- NOTE | 2024-01-29 11:45 | DI.US.S_ITS ---
LIMITED ULTRASOUND OF RIGHT BREAST AND AXILLA: 01/29/2024 CLINICAL: Constant pain in right breast. Comparison is made to exams dated: 01/29/2024 mammogram, 06/24/2023 mammogram, 06/19/2022 mammogram, 06/19/2021 mammogram, 06/18/2020 mammogram, and 06/16/2019 mammogram - [facility]. Color flow and real-time ultrasound of the right breast 10 o'clock, 12 o'clock, and axilla regions were performed. Mahoney scale images of the real-time examination were reviewed. There is a benign post surgical scar in the right breast at 10 o'clock that correlates with mammography. IMPRESSION: BENIGN There is no sonographic evidence of malignancy. There is no abnormality seen in the right breast to correspond with the palpable abnormality and pain at 12 o'clock, however, clinical followup is recommended. Return to annual mammogram screening schedule is recommended. Future imaging is recommended as follows: 06/24/2024 screening mammogram. This exam was interpreted at Station ID: [id number]. Electronically Signed By: Harshil foreman/farnaz:01/29/2024 21:11:05 letter sent: Clinical Evaluation ACR BI-RADS Category 2: Benign
== END ==
PROVIDERS: PCP Family Medicine; Referring Provider Family Medicine; Visit Provider Family Medicine
DX: R92.2 Inconclusive mammogram (principal); D05.11 Intraductal carcinoma in situ of right breast; N64.4 Mastodynia
CPT/HCPCS: 76642; 77065; G0279

== ENCOUNTER → 2024-02-08 15:40 | Outpatient (CLI) | payer MEDICARE, OTHER, SELFPAY ==
--- NOTE | 2024-02-08 15:41 | DI.MRI.S_ITS ---
BREAST MRI OF BOTH BREASTS- POST LUMPECTOMY: 02/08/2024 CLINICAL: Breast Cancer. TECHNIQUE: The patient was placed prone in a dedicated breast imaging coil. Precontrast axial STIR and 3D FLASH without fat saturation sequences were obtained. Both before and after bolus injection of contrast, sequential 1-minute axial 3D FLASH with fat saturation sequences for 3 time points, with subtraction images and maximum intensity projections (MIP's) generated. Delayed sagittal FLASH images with fat saturation were also obtained. Computer-aided detection, including computer algorithm analysis of MRI image data for lesion detection and characterization, pharmacokinetic analysis, with further physician review for interpretation, was performed. COMPARISON: [facility], , SCREENING MAMMO BI, 06/19/2021, 10:26. [facility], MM SCREENING MAMMO BI, 06/19/2022, 10:51. [facility], MM SCREENING MAMMO BI, 06/24/2023, 9:56. [facility], DIAGNOSTIC MAMMO UNILAT RT, 01/29/2024, 12:30. [facility], US BREAST RT LIMITED, 01/29/2024, 12:57. FINDINGS: Image quality: Excellent. There is minimal background parenchymal enhancement. Right breast: There are postsurgical changes in the 3-4 o'clock right breast at a posterior depth, and surgical changes in the 9-10 o'clock right breast posterior depth. No findings in the 12 o'clock position to correspond to the patient's prior pain and palpable abnormality. No suspicious mass or non masslike enhancement in the right breast. Left breast: No suspicious mass or non masslike enhancement in the left breast. Miscellaneous: No axillary or internal mammary chain adenopathy. The visible portions of the chest wall, liver, heart, and lungs appear normal. IMPRESSION: BENIGN No MR evidence of active malignancy in either breast. Surgical changes of two separate lumpectomy sites in the right breast. No suspicious enhancement. No suspicious adenopathy. Return to screening mammography is recommended. BIRADS two-benign COMMENT: The imaging literature indicates that a negative contrast breast MRI examination has a high sensitivity and a moderate specificity for detecting and excluding invasive carcinomas to a detection threshold of 3-5 mm; nonetheless, appropriate clinical and mammographic follow-up are recommended. MRI is not sensitive for detecting DCIS (ductal carcinoma in situ) and may not detect large invasive neoplasms that show only minimal enhancement such as mucinous carcinoma. If there are suspicious calcifications or clinically worrisome palpable masses, then biopsy should still be considered. Invasive neoplasms can be hidden by co-existent and benign enhancement caused by mastitis, hormone therapy effects, radiation therapy, , and recent biopsy or surgery. False positive examinations can occur in a number of circumstances, including breasts that have recently been subject to invasive procedures and those that contain atypical ductal hyperplasia, hormonally stimulated glandular tissue, fat necrosis, or radial scars. This exam was interpreted at Station ID: [id number]. Electronically Signed By: Ina viera/:02/09/2024 13:27:55 letter sent: Normal Exam ACR BI-RADS Category 2: Benign
== END ==
PROVIDERS: PCP Family Medicine; Referring Provider Internal Medicine Hematology & Oncology; Visit Provider Internal Medicine Hematology & Oncology
DX: D05.11 Intraductal carcinoma in situ of right breast (principal); N63.11 Unspecified lump in the right breast, upper outer quadrant; N63.21 Unspecified lump in the left breast, upper outer quadrant
CPT/HCPCS: 77049; A9579

== ENCOUNTER → 2024-03-10 10:00 | Outpatient (CLI) | payer MEDICARE, OTHER, SELFPAY ==
--- NOTE | 2024-03-10 10:02 | DI.RAD.S_ITS ---
PROCEDURE: XR SHOULDER LT MIN 2V INDICATIONS: fall. neck, shoulder and bilateral rib pain TECHNIQUE: Three views of the shoulder were acquired. COMPARISON: None. FINDINGS: Bones: There are no osseous abnormalities. Acromioclavicular and glenohumeral joints: Mild glenohumeral degeneration noted. The acromioclavicular joint is normal. Soft tissues: No soft tissue swelling, calcification or mass. IMPRESSION: Mild glenohumeral degeneration. Dictated by: Taj Correa M.D. on 03/11/2024 at 8:59 Approved by: Taj Correa M.D. on 03/11/2024 at 8:59
--- NOTE | 2024-03-10 10:02 | DI.RAD.S_ITS ---
PROCEDURE: XR SHOULDER RT MIN 2V INDICATIONS: fall. neck, shoulder and bilateral rib pain TECHNIQUE: Three views of the shoulder were acquired. COMPARISON: None. FINDINGS: Bones: Nondisplaced old ununited fracture through the tip of the clavicle appreciated. Acromioclavicular and glenohumeral joints: Mild acromioclavicular subluxation noted. Glenohumeral joint is normal. Soft tissues: No soft tissue swelling, calcification or mass. IMPRESSION: Mild acromioclavicular subluxation-chronicity unknown. Old ununited fracture distal clavicle Dictated by: Taj Correa M.D. on 03/11/2024 at 9:07 Approved by: Taj Correa M.D. on 03/11/2024 at 9:08
--- NOTE | 2024-03-10 10:02 | DI.RAD.S_ITS ---
PROCEDURE: XR RIBS BI MIN 4V W CXR1V INDICATIONS: fall. neck, shoulder and bilateral rib pain TECHNIQUE: Five views of the ribs were acquired, along with a single view chest. COMPARISON: None. FINDINGS: Heart, mediastinum and pulmonary vascular: Heart is normal in size and configuration. Mediastinum is unremarkable. Pulmonary vascular is normal. Lungs: Clear Pleural spaces: Normal-no effusions or pneumothorax. Bones and soft tissues: No fracture or other osseous abnormality identified in the rib. Old 90 fracture distal right clavicle noted. IMPRESSION: Normal chest and ribs Dictated by: Taj Correa M.D. on 03/11/2024 at 9:53 Approved by: Taj Correa M.D. on 03/11/2024 at 9:54
--- NOTE | 2024-03-10 10:02 | DI.RAD.S_ITS ---
PROCEDURE: XR CERVICAL SPINE 2V OR 3V INDICATIONS: fall. Neck pain TECHNIQUE: Three views (s) of the cervical spine were acquired. COMPARISON: None. FINDINGS: Cervical spine curvature and alignment: There is 3 mm of C6 anterolisthesis. The remaining cervical spine is anatomically aligned. Bones: There are no fractures or other osseous abnormalities. Disc spaces: Moderate C3-4 C4-5 severe C5-6 and mild C6-7 degenerative disc disease noted. There is severe degenerative facet disease C3-4 through C7-T1. Soft tissues: No soft tissue swelling, calcification or mass. IMPRESSION: Degeneration. No fracture or posttraumatic change Dictated by: Taj Correa M.D. on 03/11/2024 at 9:00 Approved by: Taj Correa M.D. on 03/11/2024 at 9:05
== END ==
PROVIDERS: PCP Family Medicine; Referring Provider Family Medicine; Visit Provider Family Medicine
DX: S43.111A Subluxation of right acromioclavicular joint, initial encounter (principal); M19.012 Primary osteoarthritis, left shoulder; S42.031S Displaced fracture of lateral end of right clavicle, sequela; M47.812 Spondylosis without myelopathy or radiculopathy, cervical region; M50.31 Other cervical disc degeneration, high cervical region; R07.89 Other chest pain; M25.511 Pain in right shoulder; M25.512 Pain in left shoulder
CPT/HCPCS: 71111; 72040; 73030

== ENCOUNTER → 2024-03-11 07:00 | Outpatient (CLI) | payer MEDICARE, OTHER, SELFPAY ==
[2024-03-11 08:40] LABS: Add Manual Diff / Slide Review NO; Basophils Absolute Auto 100 /uL (0-100); Eosinophils Absolute Auto 200 /uL (0-450); Eosinophils Percent Auto 3.1 % (2-4); Hematocrit 40.2 % (36-46); Hemoglobin 13.3 g/dL (12.0-16.0); Lymphocytes Absolute Auto 1700 /uL (1100-4500); Lymphocytes Percent Auto 28.4 % (25-40); Mean Corpuscular Hemoglobin 29.9 PG (26-34); Mean Corpuscular Volume 90.4 fL (80-100); Monocytes Absolute Auto 500 /uL (0-900); Monocytes Percent Auto 9.2 % (3-14); Neutrophils Absolute Auto 3500 /uL (1500-7000); Neutrophils Percent Auto 58.3 % (50-75); Platelet Count 235 X10^3/uL (150-400); Red Blood Cell Count 4.45 X10^6/uL (4.0-5.2); Red Cell Distribution Width 13.4 % (11.6-14.8)
[2024-03-11 09:14] LABS: Creatinine Urine Random 200.89 mg/dL
[2024-03-11 09:15] LABS: Alanine Aminotransferase 18 IU/L (<35); Albumin 4.4 g/dL (3.5-5.0); Albumin Globulin Ratio 1.6 (1.0-2.8); Alkaline Phosphatase 66 U/L (38-126); Aspartate Aminotransferase 24 IU/L (14-36); BUN Creatinine Ratio 18.6 (6-22); Bilirubin Total 0.6 mg/dL (0.2-1.3); Blood Urea Nitrogen 18 mg/dL (7-17); Calcium 9.9 mg/dL (8.4-10.2); Carbon Dioxide 31 mmol/L (22-32); Chloride 95 mmol/L (98-107); Cholesterol 213 mg/dL (140-199); Estimated Glomerular Filt Rate > 60 mL/min (>60); Globulin 2.7 g/dL (1.7-4.1); Glucose 90 mg/dL (80-110); HDL Cholesterol 99 mg/dL (40-60); HEMOLYSIS < 15 (0-50); LDL Cholesterol Calculated 97 mg/dL (<100); Potassium 4.2 mmol/L (3.4-5.1); Sodium 133 mmol/L (137-145); Total Protein 7.1 g/dL (6.3-8.2); Triglycerides 84 mg/dL (35-150)
[2024-03-11 09:19] LABS: Microalbumin Urine Random 1.4 mg/dL (0-1.6)
[2024-03-11 13:41] LABS: Free T4, Direct Thyroxine 1.18 ng/dL (0.78-2.19)
== END ==
PROVIDERS: PCP Family Medicine; Referring Provider Family Medicine; Visit Provider Family Medicine
DX: N95.2 Postmenopausal atrophic vaginitis (principal); D05.11 Intraductal carcinoma in situ of right breast; N64.4 Mastodynia; N63.10 Unspecified lump in the right breast, unspecified quadrant; I10 Essential (primary) hypertension; E78.2 Mixed hyperlipidemia; M25.511 Pain in right shoulder
CPT/HCPCS: 36415; 80053; 80061; 82043; 82570; 84439; 84443; 85025; 99214

== ENCOUNTER 2024-03-30 07:33 | Day surgery (SDC) | payer MEDICARE, OTHER, SELFPAY ==
[2024-03-25 11:13] VITALS: BMI 29.2
--- NOTE | 2024-03-29 11:30 | PM.PREOP ---
Pre-operative Note Interval Note History & Physical reviewed/Exam performed by Physician: Yes Changes to H&P: No
[2024-03-30] VITALS (7 sets, daily range): BP systolic 109–167; BP diastolic 68–90; PULSE 66–101; RESP 10–18; TEMP 36.1–36.4; O2SAT 92–98; BMI 28.1
--- NOTE | 2024-03-30 | PATH_ITS ---
[facility] Accession Number: [id number] No. of containers..02 Tissue . 01 Material submitted: . PART A: breast - RIGHT BREAST PART B: breast - LEFT BREAST . 01 Diagnosis: A. RIGHT BREAST, SIMPLE MASTECTOMY: Breast parenchyma with nodular areas of dense stromal hyalinizing fibrosis. Fat necrosis with cystic degenerative changes. Periductal fibrosis and fibrocystic changes present. Ductal epithelial reactive changes secondary to treatment effect (radiation/hormonal). Negative for in situ or invasive carcinoma. Skeletal muscle present without pathologic abnormalities. Skin without pathologic abnormalities. No lymph node is identified. Surgical margins: Unremarkable. . B. LEFT BREAST, SIMPLE MASTECTOMY: Breast parenchyma with two fibroadenomas. Background fibroadenomatoid changes and areas with dense stromal hyalinizing fibrosis. Focal adenosis and rare calcifications associated with benign ducts. Reactive ductal epithelial changes secondary to hormonal effect. Negative for in situ or invasive carcinoma. Skin without pathologic abnormalities. Surgical margins: Unremarkable. [facility] 04/07/2024 1522 Local . 01 Electronically signed: . Loren Quach MD, Pathologist NPI- [id number] . 01 Gross description: . A. Received: In formalin with two patient identifiers and right breast long lateral short superior. Specimen: An oriented right simple mastectomy. Weight: 881 grams. Measurement: 17.3 cm superior to inferior, 19.2 cm medial to lateral (not including presumed axillary tail tissue), 6.5 cm anterior to posterior. Skin ellipse: Present, santana, dimpled skin with no scars identified, 19.1 x 13.2 cm. Nipple/areola: A 1.5 x 1.5 cm diameter everted nipple is within a 6.3 x 5.5 cm diameter unremarkable areola. Axillary tail: Attached, 7.0 x 3.4 x 2.6 cm. prior to sectioning the breast. Margins: Skin ellipse is oriented with a short suture superior and a long suture lateral per the requisition. The posterior margin is ragged and partially covered by smooth fascia. Inked: Anterior superior blue, anterior inferior green, posterior black. Slices: Sectioned from lateral to medial into 20 slices. Two lesions identified. Lesion 1 Description: A stellate fibrous area with clip (slice 8) in the upper outer quadrant. The clip is U-shaped, consistent with a hemostatic clamp. Size: 2.7 x 2.4 x 1.7 cm. Slices involved: 7-9. Distance to margins: 0.7 cm from the black posterior margin, 1.9 cm from the anterior superior margin, widely free from all remaining margins. Lesion 2 Description: A stellate fibrous area with four clips (slices 15 and 16), and a dilated cystic area containing santana semisolid material located in the upper inner quadrant. The clips are U-shaped and consistent with hemostatic clamps. Size: Fibrous area 3.1 x 2.3 x 0.8 cm. Dilated cystic area 1.4 x 1.0 x 0.7 cm. Slices involved: 14-18. Other: The remaining cut surfaces are yellow to white fibroadipose tissue with fibrous tissue occupying approximately 15% of the cut surface. Palpation of the axillary tail reveals a possible santana lymph node candidate, 0.3 cm in greatest dimension. Fixation: Specimen was removed on 03/30/2024, time not provided. Cold ischemic time cannot be calculated. Total fixation time is approximately 65 hours following additional fixation. Superintendent Local sections are submitted as follows: A1-A2: Entire nipple. A3: Slice 6, no lesion. A4: Slice 7, lesion 1 and nearest posterior margin. A5: Slice 8, lesion with clip and black margin. A6: Slice 9, blue margin nearest lesion 1. A7: Slice 10, no lesion or margins. A8: Slice 13, no lesion or margins. A9-A10: Slice 15, composite section of lesion 2 from posterior to anterior with adjoining edges inked yellow. Clip found within section. A11-A12: Slice 16, composite cystic area from posterior to anterior with adjoining edges inked yellow. The lesion to nearest black posterior margin. A13: Slice 16, nearest blue anterior superior margin to lesion 2. A14: Slice 19, no lesion or margins. A15: Lower outer quadrant. A16: Lower inner quadrant. A17: Possible lymph node candidate. A18: Additional axillary tail tissue. B. Received: In formalin with two patient identifiers and left breast long lateral short superior. Specimen: An oriented simple mastectomy. Weight: 1316 grams. Measurement: 21.7 cm medial to lateral, 20.4 cm superior to inferior, 7.0 cm anterior to posterior. Skin ellipse: Present with santana wrinkled skin and no lesions identified 21.1 x 18.4 cm. Nipple/areola: 1.5 x 1.4 cm diameter everted nipple within a 7.5 x 5.5 cm unremarkable areola. Axillary tail: Not identified. Margins: The margins are diffusely ragged with a portion of the posterior margin covered by smooth fascia. Inked anterior superior blue, anterior inferior green, posterior black. Slices: Sliced from medial to lateral into 19 slices. Lesion: No lesions identified. Other: The cut surfaces are yellow to white fibroadipose tissue with fibrous tissue occupying approximately 15% of the cut surface. Fixation: The specimen was removed on 03/30/2024, time not provided. Cold ischemic time cannot be calculated. Total fixation time is approximately 65 hours following additional fixation. Superintendent Local sections are submitted as follows: B1: Entire bisected nipple. B2: Upper inner quadrant. B3: Lower inner quadrant. B4: Lower outer quadrant. B5: Upper outer quadrant. Note: History and OP notes are not available at time of grossing. ([id number]) /MRV 04/07/[address] [place] [address] . 01 Pathologist provided ICD-10: N63.0, N64.4 . 01 CPT . 795574, 848257 Performed at: [address] [facility], [place], [place] [id number] MD Philip Currie MD Phone: [phone]
--- NOTE | 2024-03-30 08:26 | EKG_ITS ---
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
[2024-03-30] MEDS: LACTATED RINGERS 1,000 ML 42 ML IV ×2 (08:36→12:53)
[2024-03-30] MEDS: ACETAMINOPHEN 325 MG TABLET 975 MG PO (08:38)
[2024-03-30] MEDS: SCOPOLAMINE 1 PATCH TOP (08:38)
[2024-03-30] MEDS: CLINDAMYCIN 900 MG/50 ML PIGGYBACK 50 MG IV (11:15)
--- NOTE | 2024-03-30 11:45 | SUR.OPER ---
Supine on padded OR bed, head on pillow, arms secured on padded arm boards at <90 degrees abduction, legs uncrossed, safety belt at thigh, tape over blanket over lower legs.
[2024-03-30] MEDS: BUPIVACAINE 0.25% (PF) VIAL 30 ML INJ (11:54)
[2024-03-30] MEDS: ACETAMINOPHEN IV 1,000 MG/100 ML VIAL 400 MG IV (12:19)
[2024-03-30] MEDS: OXYCODONE IR 5 MG TABLET PO (14:04)
[2024-03-30] MEDS: ONDANSETRON 4 MG/2 ML INJ IV (14:04)
--- NOTE | 2024-03-30 14:04 | PM.OP.1 ---
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 Recall, 2018 she had radiographic findings consistent with fibroadenoma x2 of the right breast. Because of unexplained beast pain pain she ultimately underwent lumpectomy x 2 which surprisingly demonstrated ductal carcinoma in Situ extensively involving the fibroadenomas. At that time DCIS was solid and cribriform of intermediate grade ER positive, and close margins. Therefore she underwent a re-resection of margins 1 month later and was found to have further DCIS within the additional margin and went on to have radiation therapy completed at [facility] followed by [facility] x 5years. She now has 4 distinct marble size masses of the right breast with associated pain and 2 on the left. Recent mammogram ultrasound and ultimately breast MRI all are negative for abnormality. She is particularly worried because of her history of having incidental DCIS without radiographic signs only pain. At this point she would like to move forward with a bilateral mastectomy. Surgeon: Charlie Barfield Facsimile Operator: Mayco Carreno Anesthesia Type: General Operative Notes Findings: Large pendulous breast bilaterally Specimen(s): other (Right breast short stitch superior long stitch lateral, left breast long stitch lateral short stitch superior) Estimated Blood Loss (mL): 100 Procedure in detail: Patient was brought to the operating room placed supine on the table. Bilateral lower extremity compression devices were applied. She received 900 mg of clindamycin prior to skin incision. She was intubated with an endotracheal tube. She was then prepped and draped in sterile fashion. Time-out was performed. An elliptical incision around the nipple areola complex was made with the knife on the right breast. The subcutaneous tissue was divided with electrocautery. Skin flaps were raised to separate the breast tissue from the skin along the subdermal plexus. The dissection was extended superior to the clavicle, medial to the sternum, inferior the the inframamary fold and lateral to the anterior border of the latisimus dorsi. Next the breast tissue was from the underlying pectoralis fascia. The breast was passed off the field marked short stitch superior long stitch lateral. A 19 Colombian Bryce drain was placed into the cavity and secured. The wound was copiously irrigated and homeostasis was ensured. There was a capsule associated with the seroma within the axillia which was excised. In doing so this slightly opened her prior right axillary incision. The wound edges were freshened and then it was closed. The mastectomy was closed with 3 0 Vicryl for the subcutaneous tissue and the skin was closed with 4 0 Monocryl followed by the application of Dermabond. We then addressed the left side. An elliptical incision around the nipple areola complex was made with the knife on the right breast. The subcutaneous tissue was divided with electrocautery. Skin flaps were raised to separate the breast tissue from the skin along the subdermal plexus. The dissection was extended superior to the clavicle, medial to the sternum, inferior the the inframamary fold and lateral to the anterior border of the latisimus dorsi. Next the breast tissue was from the underlying pectoralis fascia. The breast was passed off the field marked short stitch superior long stitch lateral. A 19 Colombian Bryce drain was placed into the cavity and secured. The wound was copiously irrigated and homeostasis was ensured. The mastectomy was closed with 3 0 Vicryl for the subcutaneous tissue and the skin was closed with 4 0 Monocryl followed by the application of Dermabond. Patient tolerated procedure well she emerged from anesthesia was extubated and transferred to recovery room in stable condition. Complications: none Post-operative Condition: stable Disposition: same day surgery
== END 2024-03-30 15:45 | disposition home or self-care (01) ==
LOC: OR 07:34 → AC 07:34
PROVIDERS: PCP Family Medicine; Referring Provider Surgery; Visit Provider Surgery
PROC: 0HTV0ZZ Resection of Bilateral Breast, Open Approach (ICD-10-PCS; CPT 19303; principal; 2024-03-30 09:45)
DX: N64.4 Mastodynia (principal); Z85.3 Personal history of malignant neoplasm of breast; Z17.0 Estrogen receptor positive status [ER+]; D24.2 Benign neoplasm of left breast; N60.31 Fibrosclerosis of right breast
CPT/HCPCS: 19303; 93005; J0134; J1100; J1171; J2250; J2405; J2704; J3010

== ENCOUNTER → 2024-05-16 07:17 | Outpatient (CLI) | payer MEDICARE, OTHER, SELFPAY ==
[2024-05-16 08:46] LABS: TSH w/ Reflex to FT4 3.34 uIU/mL (0.47-4.68)
== END ==
PROVIDERS: PCP Family Medicine; Referring Provider Family Medicine; Visit Provider Family Medicine
DX: R79.89 Other specified abnormal findings of blood chemistry (principal); Z80.0 Family history of malignant neoplasm of digestive organs; E03.8 Other specified hypothyroidism; E78.9 Disorder of lipoprotein metabolism, unspecified
CPT/HCPCS: 36415; 84443

== ENCOUNTER 2024-05-19 12:09 | Day surgery (SDC) | payer MEDICARE, OTHER, SELFPAY ==
--- NOTE | 2024-05-19 | PATH_ITS ---
[facility] Accession Number: [id number] No. of containers..01 Tissue . 01 Material submitted: . colon - CECAL POLYPS . 01 Diagnosis: CECAL POLYPS: Tubular adenomas. MRV 05/23/2024 1241 Local . 01 Electronically signed: . Kiran Recinos MD, PhD, Pathologist NPI- [id number] . 01 Gross description: . Received in formalin with two patient identifiers and 1. Cecal colon polyps, are two santana soft tissue fragments with a brown fragment of debris ranging from 3.0-1.1 cm in greatest dimension, submitted in A1. ([id number]) /MRV 05/20/2024 1532 Local . 01 Pathologist provided ICD-10: D12.0 . 01 CPT . 413820 Specimen Comment: A courtesy copy of this report has been sent to [phone] Performed at: [address] [id number] MD Philip Currie MD Phone: [phone]
[2024-05-19 12:55] VITALS: BP 160/92; PULSE 79; RESP 16; TEMP 36.4; O2SAT 97
[2024-05-19] MEDS: SODIUM CHLORIDE 0.9% 1,000 ML 150 ML IV (13:00)
--- NOTE | 2024-05-19 13:37 | PM.HP.IH.1 ---
History of Present Illness History of Present Illness Date Patient Seen: 05/19/24 Time Patient Seen: 13:37 Chief complaint: Colonoscopy Narrative: Maribel is a 74-year-old woman who presents for colonoscopy. Her last one was in 2018. She has had polyps. Her she has a family history of colon cancer. [facility] Medical History Ductal carcinoma in situ (DCIS) of right breast (~11/2018) Mixed hyperlipidemia (11/28/16) Essential hypertension (11/28/16) Surgical History H/O lumpectomy History of colonoscopy Hx of hand surgery Status post foot surgery Family History Father Cancer Brother Cancer Social History household members: spouse occupational status: previously employed Smoking Status: Never smoker alcohol intake: current substance use type: does not use additional social history: Nonsmoker, no ETOH or street drugs Meds Home Medications and Allergies Home Medications Medication Instructions Recorded Confirmed Type multivitamin 1 cap PO DAILY ##0 03/09/12 04/29/24 History calcium carbonate (Calcium 500) 500 mg PO DAILY 11/18/18 04/29/24 History acetaminophen 325 mg capsule 650 mg (2 x 325 mg) PO QID PRN 03/30/24 04/29/24 Rx (Tylenol) pain #60 caps lisinopril 20 mg tablet 40 mg PO DAILY 03/30/24 05/19/24 History simvastatin 40 mg tablet 40 mg PO DAILY 03/30/24 05/19/24 History hydrochlorothiazide 25 mg tablet See Rx Instructions .Route 04/11/24 05/19/24 Rx .COMPLEX #90 tabs sodium,potassium,mag sulfates 17.5 See Rx Instructions PO .COMPLEX 05/10/24 Rx gram-3.13 gram-1.6 gram oral soln #354 mL (Suprep Bowel Prep Kit) Allergies Allergy/AdvReac Type Severity Reaction Status Date / Time Penicillins [PENICILLINS] Allergy Intermediate RASH Verified 04/29/24 12:25 estrogens, conjugated Allergy Mild RASH Verified 04/29/24 12:25 [From PREMARIN] ibuprofen [IBUPROFEN] AdvReac Severe RUPTURED Verified 04/29/24 12:25 EYE VESSELS Sulfa (Sulfonamide AdvReac Mild Nausea Verified 04/29/24 12:25 Antibiotics) [SULFA (SULFONAMIDE ANTIBIOTICS)] Exam Vital Signs (past 8 hours): - 05/19/24 12:55 Temperature 97.6 F Pulse Rate 79 Respiratory Rate 16 Blood Pressure 160/92 H Pulse Oximetry 97 Oxygen Delivery Method Room Air Oxygen Delivery Method Room Air Const General: No acute distress Resp Effort & Inspection: normal respiratory effort Assessment & Plan Assessment and plan (1) Family history of colon cancer: Status: Acute Plan Colonoscopy Time-Based Coding :: [TOTAL MINUTES] spent with patient and on the chart (including review of chart, obtaining history, exam, reviewing outside data, placing orders, documenting exam and treatment plan, and counseling patient) on [DATE]. [employer] Document charge(s): No
--- NOTE | 2024-05-19 14:08 | PM.OP.COLON ---
Operative Date/Time/Diagnoses Date of procedure: 05/19/24 Time of procedure: 14:08 Pre-op diagnosis: Family history of colon cancer Post-op diagnosis: same Procedure & Clinicians Study performed: Colonoscopy Same procedure as scheduled: Yes Surgeon: Josh Chicas Procedure Notes Procedure in detail: Surgeon: Josh Chicas MD Anesthesia: Verona Jackson DO Procedure: The patient was brought to the endoscopy suite, placed in left lateral decubitus position. The patient was connected to monitoring devices. A time-out was performed. Sedation was administered. Once the patient was adequately sedated, a digital rectal exam was performed and was normal. The scope was then inserted and advanced to the cecum where the appendiceal orifice was identified and photographed. The scope was then slowly withdrawn over greater than 6 minutes. The mucosa was thoroughly inspected. There were 2 small polyps adjacent to each other in the cecum. They were both about 2 to 3 mm each. We removed both polyps in one take with the cold chrissy snare. The scope was retroflexed in the rectum. There were internal hemorrhoids noted. The scope was straightened and removed. The patient was awakened and brought to recovery. Scope withdrawal time: 7 minutes Sedation time: 15 minutes EBL: 5 mL Findings: 2 small polyps in the cecum and internal hemorrhoids Post-procedure Disposition: PACU
[2024-05-19 14:11] VITALS: BP 120/71; PULSE 78; RESP 22; TEMP 36.6; O2SAT 98
[2024-05-19 14:15] VITALS: BP 125/81; PULSE 79; RESP 11; TEMP 36.6; O2SAT 95
== END 2024-05-19 14:37 | disposition home or self-care (01) ==
PROVIDERS: PCP Family Medicine; Referring Provider Surgery; Visit Provider Surgery
PROC: 0DJD8ZZ Inspection of Lower Intestinal Tract, Via Natural or Artificial Opening Endoscopic (ICD-10-PCS; CPT 45378; principal; 2024-05-19 13:45)
DX: Z12.11 Encounter for screening for malignant neoplasm of colon (principal); Z86.0100 Personal history of colon polyps, unspecified; Z80.0 Family history of malignant neoplasm of digestive organs; Z12.0 Encounter for screening for malignant neoplasm of stomach; K64.8 Other hemorrhoids; I10 Essential (primary) hypertension; E78.2 Mixed hyperlipidemia; Z86.000 Personal history of in-situ neoplasm of breast
CPT/HCPCS: 45385; J2704

== ENCOUNTER → 2025-04-10 07:16 | Outpatient (CLI) | payer MEDICARE, OTHER, SELFPAY ==
[2025-04-10 08:07] LABS: Microalbumi Creatinin Ratio Ur 6.0 ug/mg CR (<30)
[2025-04-10 08:54] LABS: Add Manual Diff / Slide Review NO; Hematocrit 40.2 % (36-46); Hemoglobin 13.7 g/dL (12.0-16.0); Lymphocytes Absolute Auto 2100 /uL (1100-4500); Mean Corpuscular HGB Conc 34.0 % (30-36); Mean Corpuscular Hemoglobin 30.0 PG (26-34); Mean Corpuscular Volume 88.1 fL (80-100); Platelet Count 280 X10^3/uL (150-400)
[2025-04-10 09:23] LABS: Alanine Aminotransferase 17 IU/L (<35); Albumin 4.8 g/dL (3.5-5.0); Albumin Globulin Ratio 1.7 (1.0-2.8); Alkaline Phosphatase 59 U/L (38-126); Blood Urea Nitrogen 12 mg/dL (7-17); Calcium 9.7 mg/dL (8.4-10.2); Carbon Dioxide 28 mmol/L (22-32); Chloride 90 mmol/L (98-107); Cholesterol 186 mg/dL (140-199); Estimated Glomerular Filt Rate > 60 mL/min (>60); Globulin 2.9 g/dL (1.7-4.1); Glucose 88 mg/dL (70-99); HDL Cholesterol 97 mg/dL (40-60); HEMOLYSIS < 15 (0-50); Potassium 4.3 mmol/L (3.4-5.1); Sodium 129 mmol/L (137-145); Total Protein 7.7 g/dL (6.3-8.2); Triglycerides 103 mg/dL (35-150)
== END ==
PROVIDERS: PCP Family Medicine; Referring Provider Family Medicine; Visit Provider Family Medicine
DX: I10 Essential (primary) hypertension (principal); E78.2 Mixed hyperlipidemia
CPT/HCPCS: 36415; 80053; 80061; 82043; 82570; 85025